=== PATIENT | female | born 1985 | race Caucasian/White ===

== ENCOUNTER → 2020-12-19 02:25 | Outpatient (CLI) | payer OTHER, SELFPAY ==
[2020-12-20 01:35] LABS: SARS-CoV-2 RNA PCR Negative
== END ==
PROVIDERS: PCP Physician Assistant; Visit Provider Physician Assistant
DX: R05 Cough (principal); Z20.822 Contact with and (suspected) exposure to COVID-19
CPT/HCPCS: C9803; U0003; U0005

== ENCOUNTER → 2021-02-03 04:07 | Outpatient (CLI) | payer OTHER, SELFPAY ==
[2021-02-03 18:04] LABS: SARS-CoV-2 RNA PCR Negative
== END ==
PROVIDERS: PCP Physician Assistant; Visit Provider Physician Assistant
DX: Z20.822 Contact with and (suspected) exposure to COVID-19 (principal)
CPT/HCPCS: C9803; U0003; U0005

== ENCOUNTER 2021-12-31 14:33 | Outpatient (CLI) | payer OTHER, SELFPAY ==
--- NOTE | ~2021-12-31 | CT_ITS ---
EXAMINATION: CT brain wo con DATE: 12/31/2021 15:06 INDICATION: Closed head injury TECHNIQUE: Computed tomography (CT) of the head was performed without intravenous contrast. Sagittal and coronal reconstructions were performed. The mA was adjusted according to patient size. Iterative reconstruction technique was employed. The dose-length product was 605.33 mGy-cm. COMPARISON: None FINDINGS: No fracture. No acute intracranial hemorrhage, acute infarction or abnormal extra axial fluid collect ion. Ventricles are normal and symmetric. No mass/mass effect. The orbits, paranasal sinuses and mast oid air cells are normal. IMPRESSION: 1. Normal head CT. No fracture or acute intracranial process. Reviewed, dictated and finalized at location A.
== END 2021-12-31 14:34 | disposition home or self-care (01) ==
PROVIDERS: PCP Physician Assistant; Visit Provider Physician Assistant
DX: S09.90XA Unspecified injury of head, initial encounter (principal)
CPT/HCPCS: 70450

== ENCOUNTER 2024-03-07 13:34 | Outpatient (CLI) | payer OTHER, SELFPAY ==
--- NOTE | ~2024-03-07 | XR_ITS ---
EXAMINATION: XR chest 2V DATE: 03/07/2024 13:45 INDICATION: Cough. TECHNIQUE: Frontal and lateral views of the chest were obtained. COMPARISON: None. FINDINGS: There are airspace opacities in right lower lobe, consistent with pneumonia. No pleural eff usion or pneumothorax. The heart size is normal. IMPRESSION: 1. Right lower lobe pneumonia. Reviewed, dictated and finalized at location A. ER
== END 2024-03-07 13:35 | disposition home or self-care (01) ==
LOC: MICIMG 13:35
PROVIDERS: PCP Physician Assistant; Visit Provider Physician Assistant
DX: J18.9 Pneumonia, unspecified organism (principal)
CPT/HCPCS: 71046

== ENCOUNTER 2024-03-21 11:35 | Outpatient (CLI) | payer OTHER, SELFPAY ==
--- NOTE | ~2024-03-21 | US_ITS ---
EXAMINATION: US thyroid DATE: 03/21/2024 11:52 INDICATION: Nontoxic multinodular goiter. TECHNIQUE: Multiple ultrasound images of the thyroid were obtained. COMPARISON: None. FINDINGS: The right thyroid lobe measures 5.5 x 1.6 x 1.4 cm. The left thyroid lobe measures 5.9 x 1.7 x 2.1 c m. In the left thyroid lobe, there is a 3.3 cm solid, isoechoic, wider than tall nodule with ill-def ined margin without echogenic foci (TI-RADS TR3). In the right thyroid lobe, there is a 10 mm solid, hypoechoic, wider than tall nodule with smooth margin without echogenic foci (TR4). In the right thyr oid lobe, there is a 9 mm solid, very hypoechoic, wider than tall nodule with smooth margin without e chogenic foci (TR4). In the right thyroid lobe, there is a 12 mm solid, hypoechoic, wider than tall n odule with ill-defined margin without echogenic foci (TR4). IMPRESSION: 1. Multinodular goiter. Ultrasound-guided fine-needle aspiration of the 3.3 cm left thyroid nodule is recommended. Reviewed, dictated and finalized at location A. UNLOADER
== END 2024-03-21 11:36 | disposition home or self-care (01) ==
PROVIDERS: PCP Physician Assistant; Visit Provider Otolaryngology
DX: E04.2 Nontoxic multinodular goiter (principal)
CPT/HCPCS: 76536

== ENCOUNTER 2024-07-18 08:19 | Outpatient (CLI) | payer OTHER, SELFPAY ==
--- NOTE | ~2024-07-18 | XR_ITS ---
3 VIEWS LUMBAR SPINE Ordering provider: Macy Barclay, PAMaria Luisa History: . Acute lbp . Comparison: None. FINDINGS: VERTEBRAL BODIES:Possible spondylolysis at the level of L5-S1. No visible fracture or subluxation. M ild levoscoliosis. DISK SPACES: Normal. SOFT TISSUES: Normal. IMPRESSION: No acute osseous abnormality lumbar spine. Possible spondylolysis at the level of L5-S1. Reviewed, dictated and finalized at location A.
== END 2024-07-18 08:20 | disposition home or self-care (01) ==
PROVIDERS: PCP Physician Assistant; Visit Provider Physician Assistant
DX: M54.50 Low back pain, unspecified (principal); M43.00 Spondylolysis, site unspecified
CPT/HCPCS: 72100

== ENCOUNTER 2024-07-19 06:58 | Outpatient (CLI) | payer OTHER, SELFPAY ==
--- NOTE | ~2024-07-19 | MR_ITS ---
MRI of the lumbar spine Clinical History: Spondylosis Technique: Axial T2-weighted images, and sagittal T1-weighted, T2-weighted, and T2 fat-sat images wer e acquired. Findings: There is no fracture or subluxation of lumbar spine. Vertebral bodies maintain normal heigh t and alignment. No bone marrow signal abnormality seen. At L1-L2, L2-L3, L3-L4, intervertebral discs maintain normal signal and position. No disc bulge or he rniation T levels. No spinal canal stenosis or neural foraminal narrowing at these levels. At L4-L5, there is disc desiccation with central disc protrusion. There is mild to moderate facet art hropathy. No central canal stenosis. There is mild bilateral neural foraminal narrowing. At L5-S1, there is disc desiccation with central to left paracentral disc protrusion. No spinal canal stenosis. There is moderate left neural foraminal narrowing. Right neural foramen preserved. Paravertebral soft tissues are unremarkable. Impression: Moderate degenerative spondylitic changes at L4-L5 and L5-S1, as above. Reviewed, dictated and finalized at location . Impression: Moderate degenerative spondylitic changes at L4-L5 and L5-S1, as above.
== END 2024-07-19 06:59 | disposition home or self-care (01) ==
LOC: MICIMG 07:00
PROVIDERS: PCP Physician Assistant; Visit Provider Physician Assistant
DX: M43.06 Spondylolysis, lumbar region (principal); M43.07 Spondylolysis, lumbosacral region
CPT/HCPCS: 72148

== ENCOUNTER 2024-12-20 16:33 | Emergency (ER) | payer OTHER, SELFPAY ==
--- NOTE | ~2024-12-20 | CT_ITS ---
EXAMINATION: CT abdomen pelvis w con DATE: 12/20/2024 18:26 INDICATION: Lower abdominal pain TECHNIQUE: Computed tomography (CT) of the abdomen and pelvis was performed with 100 cc Omnipaque 350 intravenous contrast. The dose-length product was 482.63 mGy-cm. Automated exposure control and iterative reconstruction technique were employed. COMPARISON: None. FINDINGS: Lung bases unremarkable. Heart size normal. No significant pleural or pericardial effusion. Gallbladder is contracted. Fatty infiltration of the liver. The spleen, pancreas, adrenal glands and kidneys are unremarkable. No abnormal pelvic masses or fluid collections. No significant vascular ab normality. No lymphadenopathy. No free air or free fluid. Nonobstructive bowel gas pattern. No acute osseous abnormality. IMPRESSION: 1. No acute abdominal abnormality. Reviewed, dictated and finalized at location O.
--- OUTSIDE RECORDS SUMMARY | 2024-12-20 16:00 | XMS_ITS | Encounter Summary ---
Author Organization [facility] Healthcare Address [address] [place] [address] Care Team Providers Care Laboratory Tester Name Role Phone Macy Barclay Primary Care Pr ovider Reason for Visit * Reason Comments Pelvic Pain Pelvic pain, tendern ess and swelling started yesterday. Pt reports her menstrual cycle just ended earlier this week. Encounter Details Date Type Department Care Team (Late st Contact Info) Description 12/20/2024 4:00 PM CDT Office Visit [facility] Convenient Care at [address] [address] Nadiya Plata, CONCRETE FLOATER [address] [place] [id number] Pelvic pain (Primary Dx); Right lower quadrant abdominal pain; Right upper quadrant abdominal pain Social History Tobacco Use Types Packs/Day Years Used Date Smoking Tobacco: Former Cigarettes 0.4 5 2 008 - 2012 Smokeless Tobacco: Never Alcohol Use Standard Drinks/Week Comments Yes 0 (1 standard drink = 0.6 oz pur e alcohol) AUDIT-C Answer Date Recorded Q1: How often do you have a drink containing alc ohol? Monthly or less 01/31/2023 Average Number of Drinks Not on file 023 Q3: How often do you have si x or more drinks on one occasion? Never 01/31/2023 Exercise Vital Sign Answer Date Recorde d On average, how many days pe r week do you engage in moderate to strenuous exercise (like a brisk walk)? 7 days 01/27/2020 On average, how many minutes do you engage in exercise at this level? 40 min 01/27/2020 Personal Safety Answer Date Recorded Getting School Help Needed Denies 04/28 Comments No Sex and Gender Information Value Date Recorded Sex Assigned at Not on file Legal Sex Female 8:27 AM EXTERMINATOR Gender Identity Not on file Sexual Orientation Not on file documented as of this encounter Last Filed Vital Signs Vital Sign Reading Time Taken Comments Blood Pressure 124/80 12/20/2024 4:05 PM CDT Pulse 78 12/20/2024 4:05 PM CDT Temperature 36.4 C (97.6 F) 12/20/2024 4:05 PM CDT Respiratory Rate 20 12/20/2024 4:05 PM CDT Oxygen Saturation 99% 12/20/2024 4:05 PM CDT Inhaled Oxygen Concentration - - Weight 81.2 kg (179 lb) 12/20/2024 4:05 PM CDT Height - - Body Mass Index 30.25 09/04/2024 2:53 PM CDT documented in this encounter Plan of Treatment Scheduled Orders Name Type Priority Associated Diagnoses Orde r Schedule Urine culture Urine, clean voided Microbiology Routine Pelvic pain Expected: 12/20/2024, Expires: 12/20/2025 Scheduled Procedures Name Priority Associated Diagnoses Date/Ti me COLONOSCOPY Open Access Encounter for screening colonoscopy Family history of colon cancer documented as of this encounter Procedures Procedure Name Priority Date/Time Associated Diagnosis Comments POCT URINALYSIS DIPSTICK Routine 12/20/2024 4:13 PM CDT Pelvic pain documented in this encounter Results * (ABNORMAL) POCT urinalysis dipstick (12/20/2024 4:13 PM CDT) Color, Urine, POC Yellow Clarity, ur, POC Clear Clear Glucose, ur, POC Negative Negative Bilirubin, ur, POC Negative Negative Ketones, ur, POC Negative Negative Specific [place], POC 1.005 1.003 - 1.030 Blood, ur, POC Small(A) Negative pH, ur, POC 5.5 5.0 - 8.0 Protein, ur, POC Negative Negative Urobilinogen, urine, POC 0.2 0.2 - 1.0 mg/dL Nitrite, ur, POC Negative Negative Leukocytes, ur, POC Negative Negative Lot Number [id number] Urine 12/20/2024 4:13 PM CDT Nadiya Plata CONCRETE FLOATER POINT OF CARE TEST ORDERAB LES Final Result documented in this encounter Visit Diagnoses Diagnosis Pelvic pain- Primary Right lower quadrant abdominal pain Right upper quadrant abdominal pain documented in this encounter Care Teams Laboratory Tester Relationship Specialty Start Date End Date Macy Barclay PA PCP - General Physician S Iron Worker 02/04/20 documented as of this encounter
--- OUTSIDE RECORDS SUMMARY | 2024-12-20 16:00 | XMS_ITS | Encounter Summary ---
Author Organization [facility] Healthcare Address [address] [place] [address] Care Team Providers Care Front End Mechanic Name Role Phone Macy Barclay Primary Care Pr ovider Reason for Visit * Reason Comments Pelvic Pain Pelvic pain, tendern ess and swelling started yesterday. Pt reports her menstrual cycle just ended earlier this week. 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 Gender Identity Not on file Sexual Orientation [...] Negative Ketones, ur, POC Negative Negative Specific [place], POC 1.005 1.003 - 1.030 Blood, ur, POC Small(A) Negative pH, ur, POC 5.5 5.0 - 8.0 Protein, ur, POC Negative Negative Urobilinogen, urine, POC 0.2 0.2 - 1.0 mg/dL Nitrite, ur, POC Negative Negative Leukocytes, ur, POC Negative Negative Lot Number [id number] Urine 12/20/2024 4:13 PM CDT Nadiya Plata RECREATION ASSISTANT POINT OF CARE TEST ORDERAB LES Final Result documented in this encounter Visit Diagnoses Diagnosis Pelvic pain- Primary Right lower quadrant abdominal pain Right upper quadrant abdominal pain documented in this encounter Care Teams Front End Mechanic Relationship Specialty Start Date End Date Macy Barclay PA PCP - General Physician Reverberatory Skimmer 02/04/20 documented as of this encounter
--- OUTSIDE RECORDS SUMMARY | 2024-12-20 16:35 | XMS_ITS | Clinical Summary ---
Author Organization [facility] [employer] [place] Address [facility] [place] [address] Care Team Providers Care Regional Branch Manager Name Role Phone Unavailable Primary Care Provider Unavailabl e Allergies No known active allergies Medications No known medications Active Problems No known active problems Immunizations Immunization Administration Dates Next Due INFLUENZA VACCINE QUADRIVALENT 6 MOS UP IM 02/07 Family History Medical History Relation Name Comments Prostate Cancer Father Sudden Maternal Grandfather Unknown Maternal Grandmother Hypertension Mother Stroke Paternal Grandfather Breast Cancer Paternal Grandmother No Known Problems Sister No Known Problems Son 1 Relation Name Status Comments Father Maternal Grandfather Maternal Grandmother Mother Alive Paternal Grandfather Paternal Grandmother Alive Sister Alive Son 1 Alive Son 2 Alive Social History Tobacco Use Types Packs/Day Years Used Date Smoking Tobacco: Former Cigarettes Q uit: 2013 Smokeless Tobacco: Never Alcohol Use Standard Drinks/Week Comments Yes 0 (1 standard drink = 0.6 oz pur e alcohol) rarely Comments No Sex and Gender Information Value Date Recorded Sex Assigned at Not on file Legal Sex Female 11:18 AM CDT Gender Identity Not on file Sexual Orientation Not on file Last Filed Vital Signs Vital Sign Reading Time Taken Comments Blood Pressure 104/70 07/19/2017 1:56 PM CDT Pulse 56 07/19/2017 1:56 PM CDT Temperature 36.7 C (98 F) 07/19/2017 1:56 PM CDT Respiratory Rate 16 07/19/2017 1:56 PM CDT Oxygen Saturation 98% 07/19/2017 1:56 PM CDT Inhaled Oxygen Concentration - - Weight 88 kg (194 lb) 07/19/2017 1:56 PM CDT Height 162.6 cm (5' 4) 07/19/2017 1:56 PM CDT Body Mass Index 33.3 07/19/2017 1:56 PM CDT Plan of Treatment Health Maintenance Due Date Last Done Comments DTAP/TDAP/TD VACCINES (1 - Tdap) 2006 HEPATITIS B VACCINES (1 of 3 - 19+ 3-dose series) 05/02 HPV/Cotest (21-29) 2008 HPV VACCINES (1 - 3-dose SCDM series) 2014 CERVICAL CANCER SCREENING 2017 HPV/Cotest (30-65) 2017 PAP SMEAR 2017 INFLUENZA VACCINE (#1) 2024 02/07/[address] [place] [address] [address] [place] [address] OPEN ACCESS * Guarantor: [employer] Account Type Relation to Patient Date of Phone Billing Address Corporate Employer ATTN: YANIRA MORELAND [address] [address]
--- OUTSIDE RECORDS SUMMARY | 2024-12-20 16:36 | XMS_ITS | Clinical Summary ---
Author Organization [facility] Address [address] [place] [address] Care Team Providers Care Urgent Care Physician Name Role Phone [place] Macy Barclay Primary Care Pr ovider Source Comments [facility],non-owned Affiliates and Associated Physician Practices is amultiple site organization consisting of ambulatory clinics and hospital sitesin [place] and [place]. This disclosure is being madepursuant to the Care Everywhere program and may not contain all information available regarding this patient. Last updated 18.[facility] Allergies No known active allergies Immunizations Immunization Administration Dates Next Due INFLUENZA VACCINE, QUADR. (F LUZONE; FLULAVAL; FLUARIX; AFLURIA QUADRIVALENT; 6MO+), 0.5 ML (IIV4) 03/06/2019 Social History Tobacco Use Types Packs/Day Years Used Date Smoking Tobacco: Never Assessed Comments Unknown Sex and Gender Information Value Date Recorded Sex Assigned at Not on file Legal Sex Female 9:14 AM SURGEON PARTNER Gender Identity Not on file Sexual Orientation Not on file Plan of Treatment Health Maintenance Due Date Last Done Comments HIV SCREENING 2002 HEPATITIS C SCREENING 05/24/2005 DTAP/TDAP/TD VACCINES (1 - Tdap) 2006 HEPATITIS B VACCINE (1 of 3 - 19+ 3-dose series) 2006 HPV VACCINE (1 - 3-dose SCDM series) 2014 COVID-19 VACCINE (1 - 2023-2 5 season) 2023 DEPRESSION SCREENING 05/01/2024 INFLUENZA VACCINE (#1) 2024 9, 02/07/2018, 05/01/2014 ZOSTER VACCINE (1 of 2) 2037 HIB VACCINE Aged Out No longer eligi ble based on patient's age to complete this topic MENINGOCOCCAL (Group B) VACCINE SHARED DECISION-MAKING Aged Out No longer eligible based on patient's age to complete this topic MENINGOCOCCAL GROUPS A/C/Y/W VACCINE Aged Out No longer eligible b ased on patient's age to complete this topic PNEUMOCOCCAL VACCINE Aged Out No long er eligible based on patient's age to complete this topic Care Teams Urgent Care Physician Relationship Specialty Start Date End Date Macy Macias PA [address] [place] [id number] PCP - General Physician Brazer Crawler Torch 03/06/19
--- OUTSIDE RECORDS SUMMARY | 2024-12-20 16:36 | XMS_ITS | Encounter Summary ---
Author Organization [facility] Healthcare Address [address] [place] [address] Care Team Providers Care Record Label Intern Name Role Phone Macy Barclay Primary Care Pr ovider Encounter Details Date Type Department Care Team (Late st Contact Info) Description 02/16/2022 Telephone [facility] [address] [place] [address] [phone] Kaitlin Breaux, RT Social History Tobacco Use Types Packs/Day Years Used Date Smoking Tobacco: Former Cigarettes 0.4 5 2 008 - 2012 Smokeless Tobacco: Never Alcohol Use Standard Drinks/Week Comments Yes 0 (1 standard drink = 0.6 oz pur e alcohol) AUDIT-C Answer Date Recorded Q1: How often do you have a drink containing alc ohol? 2-4 times a month 01/06/2022 Q2: How many drinks containi ng alcohol do you have on a typical day when you are drinking? 1 or 2 01/06/2022 Q3: How often do you have si x or more drinks on one occasion? Never 01/06/2022 Exercise Vital Sign Answer Date Recorde d On average, how many days pe r week do you engage in moderate to strenuous exercise (like a brisk walk)? 7 days 01/27/2020 On average, how many minutes do you engage in exercise at this level? 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
--- OUTSIDE RECORDS SUMMARY | 2024-12-20 16:36 | XMS_ITS | Encounter Summary ---
Author Organization [facility] Address [address] [place] [address] Phone Care Team Providers Care Renewable Energy Trader Name Role Phone Macy Barclay Primary Care Pr ovider Encounter Details Date Type Department Care Team (Late st Contact Info) Description 12/20/2024 Telephone [facility] Medicine Obstetrics and Gynecology [address] [facility] [address] [place] [address] Kelton Dias RN Social History Tobacco Use Types Packs/Day Years [...] on file Legal Sex Female 8:27 AM HAND CLOTH FOLDER Gender Identity Not on file Sexual Orientation Not on file documented as of this encounter Miscellaneous Notes * Telephone Encounter - Kelton Dias RN - 12/20/2024 9:28 AM CDT Pt calling with c/o lower abdominal tenderness and bloating. States that her stomach looks swollen.Pt states it hurts to move/touch. Denies urinary symptoms, vaginal discharge/odor, constipation, n/v, fever. Tylenol did not help. Due to no appointments today, pt will go to urgent care. documented in this encounter Plan of Treatment Scheduled Procedures Name Priority Associated Diagnoses Date/Ti me COLONOSCOPY Open Access Encounter for screening colonoscopy Family history of colon cancer documented as of this encounter Visit Diagnoses Not on filedocumented in this encounter Care Teams Renewable Energy Trader Relationship Specialty Start Date End Date Macy Barclay PA PCP - General Physician Real Estate Transaction Coordinator 02/04/20 documented as of this encounter
--- OUTSIDE RECORDS SUMMARY | 2024-12-20 16:36 | XMS_ITS | Encounter Summary ---
Author Organization [facility] Address [address] [place] [address] Phone Care Team Providers Care Manager Spring Name Role Phone Unknown, Notinfile Primary Care Provider Unavail able Jody Ferguson MD Primary Care Provider + [phone] [facility] Sewing Room Supervisor Primary Care Prov ider Unavailable Jody Ferguson MD Primary Care Provider + [phone] [facility] Sewing Room Supervisor Primary Care Prov ider Unavailable Jody Ferguson MD Primary Care Provider + [phone] [facility] Sewing Room Supervisor Primary Care Prov ider Unavailable Jody Ferguson MD Primary Care Provider + [phone] [facility] Sewing Room Supervisor Primary Care Prov ider Unavailable Macy Barclay Primary Care Pr ovider Encounter Details Date Type Department Care Team (Latest Contact Info) Description 01/03/2017 Orders Only [facility] CONVERSION Scanning, Provider Social History Tobacco Use Types Packs/Day Years Used Date Smoking Tobacco: Former Comments Unknown Sex and Gender Information Value Date Recorded Sex Assigned at Not on file Legal Sex Female 8:27 AM SATELLITE PROJECT SITE MONITOR Gender Identity Not on file Sexual Orientation Not on file documented as of this encounter Plan of Treatment Scheduled Procedures Name Priority Associated Diagnoses Date/Ti me COLONOSCOPY Open Access Encounter for screening colonoscopy Family history of colon cancer documented as of this encounter Procedures Procedure Name Priority Date/Time Associated Diagnosis Comments OBSTETRIC/GYNECOLOGY ULTRASONOGRAPHY REPORT 01/03/2017 11:03 AM CDT documented in this encounter Results * OBSTETRIC/GYNECOLOGY ULTRASONOGRAPHY REPORT (01/03/2017 11:03 AM CDT) Anatomical Region Laterality Modality Ultrasound us Provider Scanning IMG OB US PROCEDURES Final Res ult documented in this encounter Visit Diagnoses Not on filedocumented in this encounter Care Teams Manager Spring Relationship Specialty Start Date End Date Unknown, Notinfile PCP - General 01/03/17 01/08/17 Jody Ferguson MD PCP - General 01/09/17 01/23/17 [facility] Sewing Room Supervisor PCP - General 01/24/17 Jody Ferguson MD PCP - General 01/26/17 01/26/17 [facility] Sewing Room Supervisor PCP - General 01/27/17 1 Jody Ferguson MD PCP - General 01/30/17 07/24/17 [facility] Sewing Room Supervisor PCP - General 07/25/17 Jody Ferguson MD PCP - General 08/04/17 10/18/18 [facility] Sewing Room Supervisor PCP - General 10/19/18 1 Macy Barclay PA PCP - General Physician Diabetes Education Coordinator 02/04/20 documented as of this encounter
--- OUTSIDE RECORDS SUMMARY | 2024-12-20 16:36 | XMS_ITS | Clinical Summary ---
Author Organization [facility] Address [address] [place] [address] Care Team Providers Care Contractor Buyer Name Role Phone Macy Barclay Primary Care Pr ovider Allergies No known active allergies Medications ibuprofen (ADVIL,MOTRIN) 200 mg tab/cap every 8 (eight) hours as needed for pain or headaches Active clonazePAM (KlonoPIN) 0.5 mg tablet as needed for anxiety Active SUMAtriptan (IMITREX) 50 mg tablet TAKE 1 TABLET BY MOUTH AT ONSET OF MIGRAINE. MAY REPEAT IN 1 HOUR. MAX 100 MG DAILY AT THIS TIME 04/15/20 22 Active hydrocortisone (ANUSOL-HC) 25 mg suppositoryIndic ations:Other hemorrhoids Insert 1 suppository (25 mg total) into the rectum 2 (two) times a day 12 suppository 1 02/01/20 23 Active Wegovy 2.4 mg/0.75 mL auto-injector ADMINISTER 2.4 MG UNDER THE SKIN EVERY WEEK 05/10/19 25 Active etonogestreL-eth inyl estradioL (EnilloRing) 0.12-0.015 mg/24 hr vaginal ringIndications: Encounter for surveillance of nuvaring INSERT 1 RING VAGINALLY FOR 3 WEEKS THEN REMOVE FOR 1 WEEK 1 each 1 09/17/19 25 Active Hospital, Clinic, or Other Facility Administered Medication Ordered Dose Route Frequency Start Date End Date Status cefTRIAXone (ROCEPHIN) 250 mg/mL intramuscular injection 500 mgIndications:Abdomina l/Pelvic Infection,Sexually Transmitted Infection 500 mg IM Every 24 hours scheduled 04/28/2022 Active Active Problems Problem Noted Date Diagnosed Date Encounter for screening colonoscopy 10/21/2024 Family history of colon cancer 10/21/2024 Obesity 11/03/2023 Weight gain 11/03/2023 Acute pharyngitis 09/19/2022 Anxiety 05/30/2022 Depressive disorder 05/30/2022 Acute urinary tract infection 04/14/2022 Migraine 04/14/2022 Closed injury of head 12/31/2021 Closed traumatic dislocation of acromioclavicula r joint 12/31/2021 New daily persistent headache 12/31/2021 Acromioclavicular joint sepa ration, type 5, right, subsequent encounter 12/29/2021 Overview (12/29/2021): Added automatically from request for surgery [id number] 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 Streptococcal sore throat 10/26/2021 Warts 01/27/2020 Panic attack 01/27/2020 Eustachian tube disorder 01/27/2020 Muscle pain 01/27/2020 Nausea 01/27/2020 Nonspecific syndrome suggestive of viral illness 01/27/2020 Skin nodule 01/27/2020 Acne 03/19/2013 Benign neoplasm of skin 03/19/2013 Resolved Problems Problem Noted Date Diagnosed Date Resolved Date Lactating mother 07/25/2017 01/27/2020 Breast pain 07/25/2017 01/27/2020 Encounter for insertion of i ntrauterine contraceptive device 01/27/2020 Overview (01/27/2020): Encounter for IUD insertion - (Added by TW Conv) Encounter for supervision of normal first 01/27/2020 Overview (01/27/2020): Encounter for supervision of normal first - (Added by TW Conv) Encounter for supervision of normal 01/27/2020 Overview (01/27/2020): Supervision of normal - (Added by TW Conv) Encounters Date Type Department Care Team Description 12/20/2024 4:00 PM CDT Office Visit [facility] Care at [address] [address] Nadiya Plata, CATHI Pelvic pain (Primary Dx); Right lower quadrant abdominal pain; Right upper quadrant abdominal pain 12/20/2024 Telephone [facility] Medicine Obstetrics and Gynecology [address] [facility] Outpatient Health 7th Floor [address] [place] [address] Kelton Dias RN from Last 3 Months Immunizations Immunization Administration Dates Next Due Influenza, Quadrivalent, Split, Intramuscular Influenza, Quadrivalent, Spl it, Preservative Free, Intramuscular 03/06/2019 Influenza, Trivalent, Preservative Free, Intramu scular 04/19/2010 Influenza, Unspecified 01/26/2017,05/01/2014 PPD TEST 05/01/2014 Tdap 11/22/2016,11/15/2011 Surgical History Surgery Date Site/Laterality Comments FOOT SURGERY Left glass removed BRAIN SURGERY 05/01/1991 - 04/30/1992 drainage of epidural hematoma following fall/skull fracture [place] DELIVERY ONLY 05/01/2016 - 04/30/2017 Section Low Transverse - (Added by TW Conv) [place] DELIVERY ONLY 05/01/2013 - 04/30/2014 Section - (Added by TW Conv) SHOULDER SURGERY SECTION Medical History Medical History Date Comments Encounter for supervision of normal first pregna ncy Encounter for supervision of normal Encounter for insertion of intrauterine contrace ptive device Anxiety Depression Migraines Obesity Family History Medical History Relation Name Comments Cancer Father Colon cancer Father at 53, COD Laryngeal Cancer Father smoker, suc cessfully treated with laryngectomy Basal cell carcinoma Father's Sister Cancer Mother Bladder Cancer Mother's Sister smoker Stroke Paternal Grandfather Basal cell carcinoma Paternal Grandmother Breast cancer Paternal Grandmother Anesthesia problems Neg Hx Relation Name Status Comments Father Father's Sister Alive Maternal Grandfather Maternal Grandmother Mother Alive Mother's Sister Alive Paternal Grandfather Paternal Grandmother Alive Social History Tobacco Use Types Packs/Day Years Used Date Smoking Tobacco: Former Cigarettes 0.4 5 2 008 - 2013 Smokeless Tobacco: Never Tobacco Cessation:Counseling Given: Not Answered Alcohol Use Standard Drinks/Week Comments Yes 0 [...] on file 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 Gender Identity Not on file Sexual Orientation Not on file Obstetrics History Para Term AB IAB SAB Ectopic Multiple Livin g Live Births 2 2 2 2 2 Date Outcome GA Total Labor Labor/2nd/3rd Weight Sex Type Anes PTL Agnieszka A1 A5 Name Clin 2013 Term Living 2016 Term Living Last Filed Vital Signs Vital Sign Reading Time Taken Comments Blood Pressure 124/80 12/20/2024 4:05 PM CDT Pulse 78 12/20/2024 4:05 PM CDT Temperature 36.4 C (97.6 F) 12/20/2024 4:05 PM CDT Respiratory Rate 20 12/20/2024 4:05 PM CDT Oxygen Saturation 99% 12/20/2024 4:05 PM CDT Inhaled Oxygen Concentration - - Weight 81.2 kg (179 lb) 12/20/2024 4:05 PM CDT Height 163.8 cm (5' 4.5) 09/04/2024 2:53 PM CDT Body Mass Index 30.25 09/04/2024 2:53 PM CDT Plan of Treatment Scheduled Procedures Name Priority Associated Diagnoses Date/Ti me COLONOSCOPY Open Access Encounter for screening colonoscopy Family history of colon cancer Health Maintenance Due Date Last Done Comments Depression Screening 1987 Hepatitis C Screening 1987 Varicella Vaccines (1 of 2 - 13+ 2-dose series) 2000 Hepatitis B Screening 2005 HPV Vaccines (1 - 3-dose SCDM series) 2014 Covid-19 Vaccine ( season) 2023 04/07/2021, 08/09/2020, 07/16/2020 Influenza Vaccine (#1) 2024 9, 02/07/2018, 01/26/2017, Additional history exists Cervical Cancer Screening 06/11/20252024, 06/11/2024, 01/27/2020 Regular Well Visit/Exam 18-64 06/11/2025 06/11/2024, 01/31/2023, 07/16/2021, Additional history exists DTaP/Tdap/Td Vaccine (3 - Td or Tdap) 11/22/2026 11/22/2016, 11/15/2011 Pneumococcal vaccine <65 Aged Out No longer eligible based on patient's age to complete this topic Procedures Procedure Name Priority Date/Time Associated Diagnosis Comments POCT URINALYSIS DIPSTICK Routine 12/20/2024 4:13 PM CDT Pelvic pain HIGH RISK HPV DNA DETECTION WITH GENOTYPING Routine 06/11/2024 4:00 PM PLANETARIUM TECHNICIAN Well woman exam from Last 3 Months or Most Recently Relevant to Health Maintenance Results * (ABNORMAL) POCT urinalysis dipstick (12/20/2024 4:13 PM CDT) Color, Urine, POC Yellow Clarity, ur, POC Clear Clear Glucose, ur, POC Negative Negative Bilirubin, ur, POC Negative Negative Ketones, ur, POC Negative Negative Specific [place], POC 1.005 1.003 - 1.030 Blood, ur, POC Small(A) Negative pH, ur, POC 5.5 5.0 - 8.0 Protein, ur, POC Negative Negative Urobilinogen, urine, POC 0.2 0.2 - 1.0 mg/dL Nitrite, ur, POC Negative Negative Leukocytes, ur, POC Negative Negative Lot Number [id number] Urine 12/20/2024 4:13 PM CDT us Nadiya Plata NP POINT OF CARE TEST ORDERAB LES Final Result * High Risk HPV DNA Detection with Genotyping (Molecular component) (06/11/2024 4:00 PM PLANETARIUM TECHNICIAN) HPV HR [address] Detect[address] [facility] HPV HR 18 Not Detected Not Detected [facility] HPV HR Non 16/18 Not Detected Not Detected [facility] Comment: Interpretive Data Nucleic acid amplification for detection of high-risk Human Papilloma virus (HPV) is performed by the Jesica Belkys 6800 HPV test. This assay specifically detects HPV-16 and HPV-18 genotypes. The following HPV genotypes are detected as high-risk HPV: HPV-31, 33, 35, ,39, 45, 51, 52, 56, 58, 59, 66, and 68. This assay has been approved by the [place] Food and Drug Administration for detection of HPV in cervical specimens collected by a physician using an endocervical brush/spatula or cervical broom and placed in the ThinPrep Pap Test PreservCyt collection containers. The performance characteristics of this test have been verified by the [facility] Molecular Infectious Disease laboratory. Correlate with separately reported cytology results, as applicable. Interpretive data last revised 22 Endocervical 06/11/2024 4:00 PM PLANETARIUM TECHNICIAN 06/12/2024 9:36 AM PLANETARIUM TECHNICIAN Narrative [facility] - 06/12/2024 11:00 PM PLANETARIUM TECHNICIAN Clinical history and diagnosis->none Number of vials->1 Testing type->Screening Last menstrual period (date if known)->04/17/2024 Contraceptive use->Other (please type in) nuva ring Clarissa Batres NP LAB BODY FLUIDS AND STOOLS ORDERABLES Final Result [facility] [place] [address] [facility] from Last 3 Months or Most Recently Relevant to Health Maintenance Insurance [facility] [employer] OPEN ACCESS [employer] Care Teams Contractor Buyer Relationship Specialty Start Date End Date Macy Barclay PA PCP - General Physician Surveyor Oil Well Directional 02/04/20
[2024-12-20 16:43] VITALS: BP 134/76; PULSE 81; RESP 16; O2SAT 99
--- NOTE | 2024-12-20 17:16 | ED_ITS ---
HPI - Abdominal Pain General Chief Complaint: Abdominal Pain Stated Complaint: abdominal pain Time Seen by Provider: 12/20/24 17:08 History of Present Illness HPI narrative: 39-year-old female with no significant past medical history presents to emergency department for abdominal pain since yesterday. Patient states she started having lower abdominal pain yesterday that has now moved to the upper part of her abdomen. She describes the sensation as bloating and aching. She went to urgent care prior to arrival and was advised to come to the ED due to concerns for appendicitis. The patient reports chronic nausea and constipation she attributes to her Wegovy but states this is unchanged. Her last bowel movement was yesterday and normal. She denies dysuria, hematuria, vomiting, diarrhea. LMP within the past week. She denies vaginal discharge or concern for STDs. Patient reports remote history of . Related Data Allergies Allergy/AdvReac Type Severity Reaction Status Date / Time No Known Allergies Allergy Verified 12/20/24 16:34 Review of Systems 2 Review of Systems: All systems reviewed & are unremarkable except as noted in HPI and below PMFSH Family History Family History Mother Hypertension Grandparent Cerebrovascular accident Family history of malignant neoplasm of breast Father Carcinoma of colon Malignant neoplasm of prostate Patient's father is Social History Social History Smoking status: Former smoker Alcohol intake: current Exam 2 Narrative: GENERAL: Well-appearing, well-nourished, and in no acute distress. Resting comfortably in exam bed HEAD: Normocephalic, atraumatic. EYES: PERRLA and EOMI. ENT: Nares clear, no rhinorrhea or epistaxis. Mucous membranes moist. NECK: Supple. CHEST: Clear to auscultation. No respiratory distress. HEART: Regular rate and rhythm. No murmur heard. Normal peripheral pulses. ABDOMEN: Normoactive bowel sounds. Abdomen soft with diffuse tenderness. No rebound or rigidity. Negative Jarquin's and McBurney's point. No CVA tenderness EXTREMITIES: Normal range of motion. No edema. SKIN: Warm, dry, no rash. NEURO: No focal deficits. Alert and oriented x3 Course Vital Signs Vital signs: Vital Signs Pulse Rate 81 12/20/24 16:43 Respiratory Rate 16 12/20/24 16:43 Blood Pressure 134/76 12/20/24 16:43 Pulse Oximetry 99 12/20/24 16:43 Oxygen Delivery Room Air 12/20/24 16:43 Pulse Rate 81 12/20/24 16:43 Respiratory Rate 16 12/20/24 16:43 Blood Pressure 134/76 12/20/24 16:43 Pulse Oximetry 99 12/20/24 16:43 Oxygen Delivery Room Air 12/20/24 16:43 MDM - Abdominal Pain MDM Narrative Medical decision making narrative: 39-year-old female presents to emergency department for migratory abdominal pain that started yesterday. See HPI for further history. Triage vitals are stable. Exam significant for the above. Patient is resting comfortably in exam bed. She is afebrile and nontoxic appearing. Lab work shows no leukocytosis or anemia. Chemistries are unremarkable. UA is unremarkable. is negative. Lipase is normal. CT shows no acute abdominal abnormality. Patient was given Toradol, Pepcid and Zofran. On re-evaluation she is resting comfortably in the exam bed. She was updated on results. She does note that she struggles with chronic constipation and is wondering if this may be a source of her symptoms. She is on a stool softener which I encouraged her to take and I also advised that she start MiraLax to see if this assists with her symptoms. In addition will send Pepcid and Zofran to the pharmacy for possible gastritis. Advised to follow-up closely with her PCP and discussed strict ED return precautions. Patient is agreeable with the plan verbalized understanding. Discharged in stable condition. Lab Data 12/20/24 17:24 12/20/24 17:24 Labs: Lab Results 12/20/24 12/20/24 Range/Units 17:24 17:33 WBC 7.7 (4.5-10.0) K/mm3 RBC 4.44 (4.2-5.4) M/mm3 Hgb 12.9 (12.0-15.0) g/dL Hct 38.0 (37.0-47.0) % MCV 85.6 (80-100) fl MCH 29.1 (26-34) pg MCHC 33.9 (32-36) g/dl RDW 11.8 (11.5-14.5) % Plt Count 265 (150-375) k/mm3 MPV 9.6 (7.4-10.4) fl Immature Gran % (Auto) 0.3 (0-0.5) % Neut % (Auto) 58.4 (45.5-73.1) % Lymph % (Auto) 34.0 (18.3-44.2) % [place] % (Auto) 5.6 (2.6-8.5) % Eos % (Auto) 0.8 (0-4.4) % Baso % (Auto) 0.9 (0.2-1.2) % Lymph # (Auto) 2.62 (0.9-3.2) K/mm3 [place] # (Auto) 0.4 (0.1-0.6) K/mm3 Eos # (Auto) 0.1 (0-0.3) K/mm3 Baso # (Auto) 0.1 (0.0-0.1) K/mm3 Abs Immat Gran (auto) 0.02 (0.00-0.031) K/mm3 Absolute Neuts (auto) 4.5 (1.3-6.7) K/mm3 Absolute Nucleated RBC 0.000 (0.0-0.012) K/mm3 Nucleated RBC % 0.0 (0.0-0.2) % Sodium 138 (137-145) mmol/L Potassium 3.9 (3.4-5.0) mmol/L Chloride 105 (98-107) mmol/L Carbon Dioxide 24 (22-30) mmol/L Anion Gap 9 (4-12) mmol/L BUN 12 (7-17) mg/dL Creatinine 0.65 L (0.7-1.0) mg/dL Estim Creat Clear Calc 112 ml/min Estimated GFR > 60 (59 - ) Glucose 79 (65-110) mg/dL Calcium 9.0 (8.4-10.2) mg/dL Total Bilirubin 0.2 (0.2-1.3) mg/dL AST 21 (14-36) U/L ALT 10 (6-35) U/L Alkaline Phosphatase 56 (38-126) U/L Total Protein 7.1 (6.3-8.2) g/dL Albumin 4.1 (3.5-5.1) g/dL Lipase 130 (23-300) U/L Urine Color Yellow (Yellow) Urine Appearance Cloudy H (Clear) Urine pH 6.0 (5.0-9.0) Ur Specific [place] 1.010 (1.001-1.035) Urine Protein Negative (Negative) mg/dL Urine Glucose (UA) Negative (Negative) mg/dL Urine Ketones Negative (Negative) mg/dL Ur Blood (Man) Trace (Negative) Urine Nitrate Negative (Negative) Urine Bilirubin Negative (Negative) Urine Urobilinogen 0.2 (<2.0) mg/dL Leukocyte Esterase Rfl Negative (Negative) MARTA/UL Urine RBC 0-2 (0-2) /hpf Urine WBC 0-5 (0-3) /hpf Ur Squamous Epith Cells None seen (Few) /hpf Urine Bacteria None seen /hpf Urine Casts 0-2 Urine Test Negative Imaging Data Radiologist's impression: ITS Impressions Abdomen/Pelvis CT 12/20/24 18:26 IMPRESSION: 1. No acute abdominal abnormality. Discharge Plan Discharge Clinical Impression: Abdominal pain Qualifiers: Abdominal location: generalized Qualified Code(s): R10.84 - Generalized abdominal pain Patient Disposition: Home Condition: Stable Instructions: Antibiotic Form, Abdominal Pain (ED) Additional Instructions: Please continue taking her stool softeners and MiraLax as directed for constipation. Please take the famotidine, dicyclomine and ondansetron as directed for symptoms. Follow-up closely with your primary care provider. Return to the emergency department if he develops significantly worsening pain, fever, you are unable to tolerate food or fluids, or other concerning symptoms. Patient Language: Uruguayan Prescriptions: New ondansetron 4 mg tablet,disintegrating 4 mg PO Q8H Qty: 14 0RF famotidine 20 mg tablet 20 mg PO DAILY Qty: 14 0RF dicyclomine 10 mg capsule 10 mg PO BID Qty: 14 0RF Follow-up/Referrals: Deny,FELICIA Cavazos [Primary Care Provider, Unknown]
[2024-12-20 17:31] LABS: Hematocrit 38.0 % (37.0-47.0); Hemoglobin 12.9 g/dL (12.0-15.0); Immature Granulocyte Percent A 0.3 % (0-0.5); Lymphocytes Absolute Auto 2.62 K/mm3 (0.9-3.2); Mean Corpuscular HGB Conc 33.9 g/dl (32-36); Mean Corpuscular Hemoglobin 29.1 pg (26-34); Mean Corpuscular Volume 85.6 fl (80-100); Nucleated Red Blood Cells Absolute Auto 0.000 K/mm3 (0.0-0.012); Nucleated Red Blood Cells Perc 0.0 % (0.0-0.2); Platelet Count Result 265 k/mm3 (150-375); Red Blood Count 4.44 M/mm3 (4.2-5.4); White Blood Count 7.7 K/mm3 (4.5-10.0)
[2024-12-20 17:46] LABS: Add Urine Microscopic? YES; Appearance Urine Cloudy (Clear); Glucose Urine UA Negative (Negative); Leukocyte Esterase Ur Negative LEU/UL (Negative); Nitrate Urine Negative (Negative); Non Pathogenic Casts 0-2; Specific Grav Ur 1.010 (1.001-1.035)
[2024-12-20 17:47] LABS: Alanine Aminotransferase 10 U/L (6-35); Albumin Level 4.1 g/dL (3.5-5.1); Alkaline Phosphatase 56 U/L (38-126); Anion Gap 9 mmol/L (4-12); Aspartate Amino Transferase 21 U/L (14-36); Bilirubin,Total 0.2 mg/dL (0.2-1.3); Blood Urea Nitrogen 12 mg/dL (7-17); Calcium 9.0 mg/dL (8.4-10.2); Carbon Dioxide 24 mmol/L (22-30); Chloride 105 mmol/L (98-107); Estimated CRCL calculation 112 ml/min; Estimated Glomerular Filt Rate > 60; Glucose 79 mg/dL (65-110); Lipase 130 U/L (23-300); Potassium 3.9 mmol/L (3.4-5.0); Sodium 138 mmol/L (137-145); Total Protein 7.1 g/dL (6.3-8.2)
[2024-12-20] MEDS: KETOROLAC 30 MG/ML VIAL (*BKC) IV PUSH (17:47)
[2024-12-20] MEDS: ONDANSETRON INJ 4 MG/2 ML VIAL IV PUSH (17:48)
[2024-12-20] MEDS: FAMOTIDINE 20 MG/2 ML VIAL IV PUSH (17:48)
[2024-12-20 18:03] LABS: Pregnancy On Board Control Positive
--- OUTSIDE RECORDS SUMMARY | 2024-12-20 18:23 | XMS_ITS | Clinical Summary ---
Author Organization [facility] [employer] Address [address] [place] [address] Care Team Providers Care Client Service Supervisor Name Role Phone [place] Macy Barclay Primary Care Pr ovider Source Comments [facility],non-owned Affiliates and Associated Physician Practices is amultiple site organization consisting of ambulatory clinics and hospital sitesin [place], [place], [place] and [place]. This disclosure is being madepursuant to the Care Everywhere program and may not contain all information available regarding this patient. Last updated 18.[facility] [employer] Allergies No known active allergies Immunizations Immunization Administration Dates Next Due INFLUENZA VACCINE, QUADR. 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
--- OUTSIDE RECORDS SUMMARY | 2024-12-20 18:23 | XMS_ITS | Clinical Summary ---
Author Organization [facility] Address [address] [place] [address] Care Team Providers Care Radiology Orderly Name Role Phone Macy Barclay Primary Care [...] (12/29/2021): Added automatically from request for surgery [id number] 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 Streptococcal sore [...] Description 12/20/2024 4:00 PM CDT Office Visit [facility] Care at [address] [address] Nadiya Plata, CATHI Pelvic pain (Primary Dx); Right lower quadrant abdominal pain; Right upper quadrant abdominal pain 12/20/[address] 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 Gender Identity Not on file Sexual Orientation [...] DETECTION WITH GENOTYPING Routine 06/11/2024 4:00 PM BATCH PLANT OPERATOR Well woman exam from Last 3 Months or Most Recently Relevant to Health Maintenance Results * (ABNORMAL) POCT urinalysis dipstick (12/20/2024 4:13 PM CDT) Color, Urine, POC Yellow Clarity, ur, POC Clear Clear Glucose, ur, POC Negative Negative Bilirubin, ur, POC Negative Negative Ketones, ur, POC Negative Negative Specific [place], POC 1.005 1.003 - 1.030 Blood, ur, POC Small(A) Negative pH, ur, POC 5.5 5.0 - 8.0 Protein, ur, POC Negative Negative Urobilinogen, urine, POC 0.2 0.2 - 1.0 mg/dL Nitrite, ur, POC Negative Negative Leukocytes, ur, POC Negative Negative Lot Number [id number] Urine 12/20/2024 4:13 PM CDT us Nadiya Plata NP POINT OF CARE TEST ORDERAB LES Final Result * High Risk HPV DNA Detection with Genotyping (Molecular component) (06/11/2024 4:00 PM BATCH PLANT OPERATOR) HPV HR 16 Not Detected Not Detected [facility] HPV HR 18 Not Detected Not Detected [facility] HPV HR Non 16/18 Not Detected Not Detected [facility] Comment: Interpretive Data Nucleic acid amplification for [...] this test have been verified by the [facility] Molecular Infectious Disease laboratory. Correlate with separately reported cytology results, as applicable. Interpretive data last revised 22 Endocervical 06/11/2024 4:00 PM BATCH PLANT OPERATOR 06/12/2024 9:36 AM BATCH PLANT OPERATOR Narrative [facility] - 06/12/2024 11:00 PM BATCH PLANT OPERATOR Clinical history and diagnosis->none Number of vials->1 Testing type->Screening Last menstrual period (date if known)->04/17/2024 Contraceptive use->Other (please type in) nuva ring Clarissa Batres NP LAB BODY FLUIDS AND STOOLS ORDERABLES Final Result [facility] One [facility] Department [place] [address] [facility] from Last 3 Months or Most Recently Relevant to Health Maintenance Insurance [facility] [employer] CIGNA OPEN ACCESS [employer] Care Teams Radiology Orderly Relationship Specialty Start Date End Date Macy Barclay PA PCP - General Physician Stone Planer 02/04/20
--- OUTSIDE RECORDS SUMMARY | 2024-12-20 18:23 | XMS_ITS | Encounter Summary ---
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
--- OUTSIDE RECORDS SUMMARY | 2024-12-20 18:23 | XMS_ITS | Encounter Summary ---
Author Organization [facility] Address [address] [place] [address] Phone Care Team Providers Care Carpenter Name Role Phone Unknown, Notinfile Primary Care Provider Unavail able Jody Ferguson MD Primary Care Provider + [phone] [facility] Complaint Coordinator Primary Care Prov ider Unavailable Jody Ferguson MD Primary Care Provider + [phone] [facility] Complaint Coordinator Primary Care Prov ider Unavailable Jody Ferguson MD Primary Care Provider + [phone] [facility] Complaint Coordinator Primary Care Prov ider Unavailable Jody Ferguson MD Primary Care Provider + [phone] [facility] Complaint Coordinator Primary Care Prov ider Unavailable Macy Barclay Primary Care Pr ovider Encounter Details Date Type Department Care Team (Latest Contact Info) Description 01/03/2017 Orders Only [facility] CONVERSION Scanning, Provider Social History Tobacco Use Types Packs/Day Years Used Date Smoking Tobacco: Former Comments Unknown Sex and Gender Information Value Date Recorded Sex Assigned at Not on file 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 Gender Identity Not on file Sexual Orientation [...] on filedocumented in this encounter Care Teams Carpenter Relationship Specialty Start Date End Date Unknown, Notinfile PCP - General 01/03/17 01/08/17 Jody Ferguson MD PCP - General 01/09/17 01/23/17 [facility] Complaint Coordinator PCP - General 01/24/17 Jody Ferguson MD PCP - General 01/26/17 01/26/17 [facility] Complaint Coordinator PCP - General 01/27/17 1 Jody Ferguson MD PCP - General 01/30/17 07/24/17 [facility] Complaint Coordinator PCP - General 07/25/17 Jody Ferguson MD PCP - General 08/04/17 10/18/18 [facility] Complaint Coordinator PCP - General 10/19/18 1 Macy Barclay PA PCP - General Physician Gi Asst 02/04/20 documented as of this encounter
--- OUTSIDE RECORDS SUMMARY | 2024-12-20 18:23 | XMS_ITS | Encounter Summary ---
Author Organization [facility] Address [address] [place] [address] Phone Care Team Providers Care Ccu Nurse Name Role Phone Macy Barclay Primary Care Pr ovider Encounter Details Date Type Department Care Team (Late st Contact Info) Description 12/20/2024 Telephone [facility] Medicine Obstetrics and Gynecology [address] 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
[2024-12-20 18:54] VITALS: TEMP 36.9
== END 2024-12-20 19:16 | disposition home or self-care (01) ==
PROVIDERS: Physician Assistant; Emergency Provider Physician Assistant; PCP Physician Assistant
DX: R10.84 Generalized abdominal pain (principal); Z87.891 Personal history of nicotine dependence
CPT/HCPCS: 36415; 74177; 80053; 81001; 81025; 83690; 85025; 96374; 96375; 99284; J1885; J2405; Q9967